=== PATIENT | female | born 1990 | race Caucasian/White ===

== ENCOUNTER 2017-02-05 22:23 | Emergency (ER) | payer OTHER ==
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
[2017-02-05] MEDS ORDERED: TYLENOL 325 MG PO ONE (23:12)
[2017-02-05] MEDS ORDERED: VOLTAREN 50 MG PO STA ×2 (23:13→23:42)
[2017-02-05] MEDS ORDERED: TYLENOL 325 MG ONE (23:18)
[2017-02-06 00:49] VITALS: BP 118/70; PULSE 78; O2SAT 100
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
== END 2017-02-06 00:49 | disposition home or self-care (01) ==
LOC: ED 22:23
DX: M25.551 Pain in right hip (principal); S70.01XA Contusion of right hip, initial encounter; V03.00XA Pedestrian on foot injured in collision with car, pick-up truck or van in nontraffic accident, initial encounter; Y92.512 Supermarket, store or market as the place of occurrence of the external cause
CPT/HCPCS: 73502; 99283; A9270-GY

== ENCOUNTER 2017-04-17 07:42 | Day surgery (SDC) | payer OTHER ==
[2017-04-17] MEDS ORDERED: Versed 2 MG/2 ML Injection IV ONE (07:43)
[2017-04-17] MEDS ORDERED: DIPRIVAN 200 MG/20 ML IV ONE (07:43)
[2017-04-17] MEDS ORDERED: Lactated Ringers 1,000 ML IV SCH (08:00)
[2017-04-17 08:11] LABS: Mean Cell Volume 91.8 fl (78-100); Mean Corpuscular Hemoglobin 31.2 pg (26-32); Mean Platelet Volume 8.8 fl (6-9.5); Platelet Count 345 K/mm3 (150-450); Red Blood Count 4.13 M/mm3 (4.1-5.4); Red Cell Distribution Width 13.1 % (11.5-14.0); White Blood Count 8.7 K/mm3 (4.0-10.5)
[2017-04-17 08:36] LABS: ANION GAP 13.8 MEQ/L (5-15); BLOOD UREA NITROGEN 8 mg/dL (9-20); CHLORIDE 106 mEq/L (98-107); Carbon Dioxide 25.4 mEq/L (21-32); Glucose 86 MG/DL (70-110); Potassium 3.8 mEq/L (3.5-5.1); SODIUM 141 mEq/L (136-145)
[2017-04-17 08:47] LABS: INR 1.07 (0.8-3.0); PROTIME 11.9 SECONDS (9.95-12.35)
[2017-04-17] MEDS ORDERED: Lactated Ringers 1,000 ML IV ONE (10:54)
[2017-04-17 12:15] VITALS: BP 119/72; PULSE 79; O2SAT 99
[2017-04-19 04:19] LABS: Giardia Antigen EIA Negative (Negative)
--- NOTE | 2017-05-08 15:30 | OP ---
PROCEDURE DATE/TIME: 04/17/2017 1041 PREOPERATIVE DIAGNOSES: 1) GI bleeding. 2) Occasional diarrhea. 3) Occasional abdominal pain. POSTOPERATIVE DIAGNOSES: 1) Gastritis. 2) Posterior healed anal fissure. PROCEDURES: 1) EGD with biopsy. 2) Colonoscopy. PROCEDURE PERFORMED BY: Minnie Ricks M.D. ANESTHESIA: MAC. ESTIMATED BLOOD LOSS: Minimal. COMPLICATIONS: None. SPECIMENS: Antral biopsy and stool cultures Clostridium difficile, ova and parasite. HISTORY: This is a 27 year-old female who had noted some GI bleeding as well as some on and off abdominal pain as well as diarrhea. She presents for EGD and colonoscopy for further work up. All risks, benefits, alternatives have been discussed, consent has been obtained. DESCRIPTION OF PROCEDURE: The patient was seen in the preoperative area. No questions. She was able to be brought back to the endoscopy suite. She was laid in the left lateral decubitus position. A complete time out performed. First, the scope was entered into the mouth, oropharynx carefully down into the stomach and then into duodenum. The duodenum was normal. In the stomach the patient does have gastritis. We took an antral biopsy with cold forceps to rule out Helicobacter pylori. The site was hemostatic after biopsies. We retroflexed the scope to look at the hiatus and cardia. The patient does have gastritis. No other significant issues here. We then carefully withdrew the scope. The esophagus looked normal. The patient tolerated this part of the procedure well. She was then repositioned for colonoscopy. First a rectal inspection and then rectal exam was done. The patient does has have a healed posterior anal fissure. The skin is very thin here. There is a scar here that appears to be fresh. I suspect that this is likely the cause of her bright red blood per rectum and she is not having this anymore now this appears to have healed. We then inserted the colonoscope and carefully advanced this to the level of the cecum. I did not see any inflammation or issues. The cecum was normal. The scope was carefully withdrawn. There was some liquid stool which was irrigated and suctioned. No other findings in the colon. We did use a stool trap to collect the stool for samples due to her on and off diarrhea. This was sent for Clostridium difficile, stool culture, ova and parasite. A very smaller flat lesion could be missed because of the prep but I did not see anything concerning. There was no sign of inflammatory bowel disease either. Everything looked very healthy. The scope was completely withdrawn. The patient tolerated the procedure very well. There were no immediate complications. She is going to follow up with me to discuss her test results as an outpatient and she is on a proton pump inhibitor therapy which we will continue.
== END 2017-04-17 12:28 | disposition home or self-care (01) ==
LOC: SDC 07:42
PROVIDERS: ATTEND Surgery
PROC: 0DB78ZX Excision of Stomach, Pylorus, Via Natural or Artificial Opening Endoscopic, Diagnostic (ICD-10-PCS; principal; 2017-04-17)
PROC: 0DJD8ZZ Inspection of Lower Intestinal Tract, Via Natural or Artificial Opening Endoscopic (ICD-10-PCS; 2017-04-17)
DX: K29.70 Gastritis, unspecified, without bleeding (principal); R19.7 Diarrhea, unspecified
CPT/HCPCS: 00740; 00810; 36415; 80048; 84703; 85027; 85610; 87045; 87046; 87177; 87209; 87335; 87493; 88305; J2250; J2704

== ENCOUNTER 2017-10-28 19:38 | Emergency (ER) | payer OTHER ==
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
[2017-10-28 23:19] VITALS: BP 146/90
[2017-10-28 23:20] VITALS: PULSE 88; O2SAT 99
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
== END 2017-10-28 23:25 | disposition home or self-care (01) ==
LOC: ED 19:38
DX: G44.209 Tension-type headache, unspecified, not intractable (principal); R42 Dizziness and giddiness; R11.0 Nausea; Z79.899 Other long term (current) drug therapy
CPT/HCPCS: 70450; 84703; 99284